=== PATIENT | male | born 1975 | race Caucasian/White ===

== ENCOUNTER 2018-07-01 21:36 | Emergency (ER) | payer SELFPAY ==
[~2018-07-01] VITALS: Ht 165.1 cm; Wt 81.6 kg
[2018-07-01 22:29] VITALS: BP 135/90; Ht 165.1 cm; Wt 81.6 kg
== END 2018-07-01 23:15 | disposition home or self-care (01) ==
LOC: ED 21:36
DX: R51 Headache (principal); M79.10 Myalgia, unspecified site; V49.49XA Driver injured in collision with other motor vehicles in traffic accident, initial encounter; Y93.I9 Activity, other involving external motion; Y92.413 State road as the place of occurrence of the external cause; Y99.8 Other external cause status